=== PATIENT | female | born 1975 | race Native Hawaiian/Other Pacific Islander ===

== ENCOUNTER 2017-12-01 21:23 | Emergency (ER) | payer OTHER ==
[2017-12-01 22:27] VITALS: BP 140/86; PULSE 76; RESP 16; TEMP 98.4; O2SAT 100
--- NOTE | 2017-12-02 00:57 | ED PDOC ---
HPI: Eye Injury/Pain Time Seen by Provider: 12/02/17 00:05 Chief Complaint (Nursing): Eye Problem Chief Complaint (Provider): right eye irritation History Per: Patient History/Exam Limitations: no limitations Onset/Duration Of Symptoms: Hrs (7) Current Symptoms Are (Timing): Better Additional History Per: Patient Additional Complaint(s): 42 y/o female presents with right eye irritaton x 7 hours. Patient states she accidentally squirted her water bottle in her eye which contained pineapple juice and pineapple piece. Patient states she took out her contacts and flushed eye with warm water. Patient states initially she felt "pressure" to eye, but states symptoms now improving, now just with slight burning/ discomfort. Denies headache, vision changes, discharge from eye. Past Medical History Reviewed: Historical Data, Nursing Documentation, Vital Signs Vital Signs: Last Vital Signs Temp 98.4 F 12/01/17 22:22 Pulse 76 12/01/17 22:22 Resp 16 12/01/17 22:22 BP 140/86 12/01/17 22:22 Pulse Ox 100 12/01/17 22:22 - Medical History PMH: No Chronic Diseases - Surgical History Surgical History: No Surg Hx - Family History Family History: States: No Known Family Hx - Allergies Allergies/Adverse Reactions: Allergies Allergy/AdvReac Type Severity Reaction Status Date / Time No Known Allergies Allergy Verified 12/01/17 22:27 Review of Systems ROS Statement: Except As Marked, All Systems Reviewed And Found Negative Eyes: Positive for: Redness Physical Exam - Reviewed Nursing Documentation Reviewed: Yes Vital Signs Reviewed: Yes - Physical Exam Appears: Positive for: Well, Non-toxic, No Acute Distress Head Exam: Positive for: ATRAUMATIC, NORMAL INSPECTION, NORMOCEPHALIC Skin: Positive for: Normal Color Eye Exam: Positive for: Normal appearance, EOMI, PERRL, Periorbital swelling ( right, mild), Conjunctival injection (right). Negative for: Periorbital tenderness ENT: Positive for: Normal ENT Inspection - ECG O2 Sat by Pulse Oximetry: 100 - Progress ED Course And Treament: right eye anesthesized with 2 drops tetracaine; fluro stain reveals no uptake. Patient discharged with instructions to follow up optho. advised to throw out current contacts Use glasses Return precautions given. Disposition - Clinical Impression Clinical Impression: Irritation of right eye Counseled Patient/Family Regarding: Studies Performed, Diagnosis, Need For Followup - Disposition Referrals: Sai Baum MD [Staff Provider] - Disposition: Routine/Home Disposition Time: 01:03 Condition: STABLE
== END 2017-12-02 01:10 | disposition home or self-care (01) ==
LOC: H.ER 21:23
DX: H57.11 Ocular pain, right eye (principal)